=== PATIENT | female | born 1965 | race Two or more races ===

== ENCOUNTER 2024-11-17 15:48 | Emergency (ER) | payer MEDICAID ==
[~2024-11-17] VITALS: Ht 154.9 cm; Wt 85.5 kg
--- NOTE | 2024-11-17 16:21 | ED.PDOC ---
History of Present Illness HPI Comments 59-year-old female with PMHx HTN, HLD presents with a chief complaint of abdominal pain x 8 days and with nausea. Patient states that her pain is localized to her upper quadrants, nonradiating, describes as sharp, and rates her pain a 8/10. Patient reports that she is experiencing nausea, but has not vomited. Patient is hypertensive in triage at 167/87. No other symptoms or modifying factors present at this time. Time Seen by MD: 16:14 Reviewed Notes: Nurses Notes, Medications, Allergies Allergies: Coded Allergies: NO KNOWN ALLERGIES (Unverified , 11/17/24) Home Meds Active Scripts Pantoprazole Sodium Sesquihydr (Protonix) 40 Mg Tab, 40 MG PO DAILY, #30 TAB Prov:JEREL OLIVEROS MD 11/17/24 Ciprofloxacin Hcl (Cipro) 500 Mg Tab, 1 TAB PO BID, #14 TAB Prov:JEREL OLIVEORS MD 11/17/24 Information Source: Patient Mode of Arrival: Ambulatory Severity: Moderate Timing: Days Duration: Since onset Prehospital treatment: None Past Medical History PAST MEDICAL HISTORY: High Lipids, HTN Surgical History: Tubal Ligation [employer] History: Denies all [employer] Hx Family History Family History: Reviewed,noncontributory to illness Social History Smoker: Non-Smoker Alcohol: Denies ETOH Use Drugs: Denies Drug Use Lives In: Home Constitutional: denies: chills, diaphoresis, fatigue, fever, malaise, sweats, weakness, others EENTM: denies: blurred vision, double vision, ear bleeding, ear discharge, ear drainage, ear pain, ear ringing, eye pain, eye redness, hearing loss, mouth pa in, mouth swelling, nasal discharge, nose bleeding, nose congestion, nose pain, photophobia, tearing, throat pain, throat swelling, voice changes, others Respiratory: denies: cough, hemoptysis, orthopnea, SOB at rest, shortness of breath, SOB with excertion, stridor, wheezing, others Cardiovascular: denies: chest pain, dizzy spells, diaphoresis, Dyspnea on exertion, edema, irregular heart beat, left arm pain, lightheadedness, palpitations, PND, syncope, others Gastrointestinal: reports: abdominal pain, nausea; denies: abdomen distended, blood streaked bowels, constipated, diarrhea, dysphagia, difficulty swallowing, hematemesis, melena, poor appetite, poor fluid intake, rectal bleeding, rectal pain, vomiting, others Genitourinary: denies: abnormal vagina bleeding, burning, dyspareunia, dysuria, flank pain, frequency, hematuria, incontinence, pain, , vagina discharge, urgency, others Neurological: denies: dizziness, fainting, headache, left sided numbness, left sided weakness, numbness, paresthesia, pre-existing deficit, right sided numbness, right sided weakness, seizure, speech problems, tingling, tremors, weakness, others Musculoskeletal: denies: back pain, gout, joint pain, joint swelling, muscle pain, muscle stiffness, neck pain, others Integumetry: denies: bruises, change in color, change in hair/nails, dryness, laceration, lesions, lumps, rash, wounds, others Allergic/Immunocompromised: denies: Difficulty Healing, Frequent Infections, Hives, Itching, others Hematologic/Lymphatic: denies: anemia, blood clots, easy bleeding, easy bruising, swollen glands, others Endocrine: denies: excessive hunger, excessive sweating, excessive thirst, excessive urination, flushing, intolerance to cold, intolerance to heat, unexplained weight gain, unexplained weight loss, others Psychiatric: denies: anxiety, bipolar disorder, depression, hopeless, panic disorder, schizophrenia, sleepless, suicidal, others All Other Systems: Reviewed and Negative Physical Exam General Appearance: Mild Distress HEENT: Normal ENT Inspection, Pharynx Normal, TMs Normal Neck: Full Range of Motion, Non-Tender, Normal, Normal Inspection Respiratory: Chest Non-Tender, Lungs Clear, No Accessory Muscle Use, No Respiratory Distress, Normal Breath Sounds Cardiovascular: No Edema, No JVD, No Murmur, No Gallop, Normal Peripheral Pulses, Regular Rate/Rhythm Breast Exam: Deferred Gastrointestinal: No Organomegaly, Non Tender, No Pulsatile Mass, Normal Bowel Sounds, Soft Genitalia: Deferred Pelvic: Deferred Rectal: Deferred Extremities: No calf tenderness, Normal capillary refill, Normal inspection, Normal range of motion, Non-tender, No pedal edema Musculoskeletal : Apperance: Normal Neurologic: Alert, brusher and shearer II-XII nml as Tested, No Motor Deficits, Normal Affect, Normal Mood, No Sensory Deficits Cerebellar Function: Normal Reflexes: Normal Skin: Dry, Normal Color, Warm Lymphatic: No Adenopathy Was a procedure done? Was a procedure done?: No Differential Dx Considerations may include: Gastritis, cholecystitis, UTI, generalized weakness X-Ray, Labs, Meds, VS Vital Signs Date Time Temp Pulse Resp B/P (MAP) Pulse Ox O2 Delivery O2 Flow Rate FiO2 11/17/24 16:19 91 11/17/24 16:18 98.3 94 16 167/87 (113) 95 98.3 Lab Test 11/17/24 16:41 11/17/24 16:35 Range/Units White Blood Count 7.2 4.4-10.8 10^3/uL Red Blood Count 4.97 4.0-5.20 10^6/uL Hemoglobin 14.6 12.2-16.2 g/dL Hematocrit 43.3 36.0-46.0 % Mean Corpuscular Volume 87.2 80.0-100.0 fL Mean Corpuscular Hemoglobin 29.3 28.0-32.0 pg Mean Corpuscular Hemoglobin Concent 33.6 32.0-36.0 g/dL Red Cell Distribution Width 13.7 11.8-14.3 % Platelet Count 253 140-450 10^3/uL Mean Platelet Volume 8.7 6.9-10.8 fL Neutrophils (%) (Auto) 61.5 37.0-80.0 % Lymphocytes (%) (Auto) 30.1 10.0-50.0 % Monocytes (%) (Auto) 5.5 0.0-12.0 % Eosinophils (%) (Auto) 2.3 0.0-7.0 % Basophils (%) (Auto) 0.6 0.0-2.0 % Neutrophils # (Auto) 4.4 1.6-8.6 10 ^3/uL Lymphocytes # (Auto) 2.2 0.4-5.4 10 ^3/uL Monocytes # (Auto) 0.4 0-1.3 10 ^3/uL Eosinophils # (Auto) 0.2 0-0.8 10 ^3/uL Basophils # (Auto) 0 0-0.2 10 ^3/uL Nucleated Red Blood Cells 0.0 % Sodium Level 142 136-145 mmol/L Potassium Level 3.7 3.5-5.1 mmol/L Chloride Level 107 98-107 mmol/L Carbon Dioxide Level 26 20-31 mmol/L Anion Gap 9 5-15 Blood Urea Nitrogen 10 9-23 mg/dL Creatinine 0.74 0.550-1.02 mg/dL Glomerular Filtration Rate Calc 92 >90 mL/min BUN/Creatinine Ratio 13.5 10.0-20.0 Serum Glucose 93 74-106 mg/dL Calcium Level 9.5 8.7-10.4 mg/dL Total Bilirubin 0.6 0.2-1.0 mg/dL Aspartate Amino Transferase (AST) 14 13-40 U/L Alanine Aminotransferase (ALT) 16 7-40 U/L Alkaline Phosphatase 90 46-116 U/L Total Protein 7.7 5.7-8.2 g/dL Albumin 5.0 H 3.2-4.8 g/dL Lipase 42 12-53 U/L Urine Color Light-yellow Yellow Urine Clarity Turbid H Clear Urine pH 5.5 5.0-9.0 Urine Specific [place] 1.022 1.001-1.035 Urine Protein Trace H Negative Urine Ketones Negative Negative Urine Blood 1+ H Negative /uL Urine Nitrite Negative Negative Urine Bilirubin Negative Negative Urine Urobilinogen Normal Negative mg/dL Urine Leukocyte Esterase 3+ Negative /uL Urine RBC 13 0 - 4 /hpf Urine Microscopic WBC 425 H 0-5 /HPF Urine Squamous Epithelial Cells Few <5 /hpf Urine Bacteria Few H None Seen /hpf Urine Hyaline Casts Few 0 - 2 /lpf Urine Mucus Few None Seen Urine Glucose Normal Normal mg/dL Current Medications Medications (Trade) Dose Ordered Sig/Sreedhar Route Start Time Stop Time Status Last Admin Ondansetron HCl (Zofran) 4 mg ONCE ONCE IV 11/17/24 16:45 11/17/24 16:46 DC 11/17/24 17:35 Sodium Chloride 500 ml @ 500 mls/hr Q1H ONCE IVB 11/17/24 16:45 11/17/24 17:44 DC 11/17/24 16:45 Pantoprazole Sodium (Protonix) 40 mg ONCE ONCE IV 11/17/24 16:45 11/17/24 16:46 DC 11/17/24 17:35 IV Hep-Lock was established The patient was given Zofran 4 mg IV push for the nausea The patient was given Protonix 40 mg IV push The patient was given normal saline at a 500 cc bolus. The urine test is positive for a significant UTI The patient was given Rocephin 1 g IV piggyback for the UTI The patient's CBC and chemistry panel is within normal limits The CAT scan of the abdomen and pelvis shows: Impression: 4.5 x 4.1 by 3.4 cm hypoechoic hepatic lesion adjacent to the gallbladder fossa which may represent an area of focal fatty sparing/ hepatic lesion. Hepatic protocol CT should be considered for further evaluation. Mild hepatomegaly with hepatic steatosis. We gave the patient a copy of the CAT scan and said that they do need to follow up with their primary care doctor They understand and agree with the management Images Reviewed?: Images reviewed and evaluated by me Time of 1ST Reevaluation: 16:44 Reevaluation 1ST: Improved Time of 2ND Reevaluation: 18:25 Reevaluation 2ND: Improved Patient Education/Counseling: Diagnosis, Treatment, Prognosis, Need For Follow Up Family Education/Counseling: No Family Present Departure 1 Departure Time of Disposition: 18:24 Impression: Primary Impression: UTI (urinary tract infection) Qualified Codes: N30.00 - Acute cystitis without hematuria Additional Impression: Abdominal pain Qualified Codes: R10.9 - Unspecified abdominal pain Disposition: 01 HOME / SELF CARE / HOMELESS Condition: Fair e-Prescriptions Pantoprazole Sodium Sesquihydr (Protonix) 40 Mg Tab 40 MG PO DAILY, #30 TAB Prov: JEREL OLIVEROS MD 11/17/24 Ciprofloxacin Hcl (Cipro) 500 Mg Tab 1 TAB PO BID, #14 TAB Prov: JEREL OLIVEROS MD 11/17/24 Discharged With: Self Critical Care Note Critical Care Time?: No Stability Stability form required: No Heart Score Heart Score: Heart Score Response (Comments) Value History N/A 0 EKG N/A 0 Age N/A 0 Risk Factors N/A 0 Troponin N/A 0 Total 0 I personally scribed for JEREL OLIVEROS MD ([email or web address]) on 11/17/24 at 16:21. Electronically submitted by Erick Panda ([email or web address]). JEREL OLIVEROS MD Nov 17, 2024 16:21
--- NOTE | 2024-11-17 16:24 | ECG ---
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
[2024-11-17] MEDS: MORPHINE SULFATE 4 MG/ML SYR/VIAL IV ONE (16:45)
[2024-11-17] MEDS: SODIUM CHLORIDE 0.9% 500 ML IVB ONE (16:45)
[2024-11-17 16:47] LABS: Urine Bacteria FEW /hpf (None Seen); Urine Blood 1+ /uL (Negative); Urine Clarity Turbid (Clear); Urine Color Light-Yellow (Yellow); Urine Hyaline Cast FEW /lpf (0 - 2); Urine Mucus FEW (None Seen); Urine Protein, UAD TRACE (Negative); Urine Specific Gravity 1.022 (1.001-1.035); Urine Squamous Epithelial Cell FEW /hpf (<5); Urine Urobilinogen Normal (Negative); Urine WBC 425 /HPF (0-5); Urine pH 5.5 (5.0-9.0)
[2024-11-17 17:02] LABS: Basophils # (auto) 0 10 ^3/uL (0-0.2); Basophils % (auto) 0.6 % (0.0-2.0); Eosinophils # (auto) 0.2 10 ^3/uL (0-0.8); Eosinophils % (auto) 2.3 % (0.0-7.0); Hematocrit 43.3 % (36.0-46.0); Hemoglobin 14.6 g/dL (12.2-16.2); Lymphocytes # (auto) 2.2 10 ^3/uL (0.4-5.4); Lymphocytes % (auto) 30.1 % (10.0-50.0); Mean Corpuscular Hemoglobin 29.3 pg (28.0-32.0); Mean Corpuscular Hgb Conc. 33.6 g/dL (32.0-36.0); Mean Corpuscular Volume 87.2 fL (80.0-100.0); Monocytes # (auto) 0.4 10 ^3/uL (0-1.3); Monocytes % (auto) 5.5 % (0.0-12.0); Neutrophils # (auto) 4.4 10 ^3/uL (1.6-8.6); Neutrophils % (auto) 61.5 % (37.0-80.0); Platelet Count (auto) 253 10^3/uL (140-450); Red Blood Cells 4.97 10^6/uL (4.0-5.20); Red Cell Distribution Width 13.7 % (11.8-14.3); White Blood Cell 7.2 10^3/uL (4.4-10.8)
[2024-11-17 17:17] LABS: Alanine Aminotransferase 16 U/L (7-40); Alkaline Phosphatase 90 U/L (46-116); Anion Gap 9 (5-15); Aspartate Aminotransferase 14 U/L (13-40); BUN/Creatinine Ratio 13.5 (10.0-20.0); Bilirubin, Total 0.6 mg/dL (0.2-1.0); Blood Urea Nitrogen 10 mg/dL (9-23); Calcium 9.5 mg/dL (8.7-10.4); Carbon Dioxide 26 mmol/L (20-31); Chloride 107 mmol/L (98-107); Glucose 93 mg/dL (74-106); Lipase 42 U/L (12-53); Potassium 3.7 mmol/L (3.5-5.1); Sodium 142 mmol/L (136-145); Total Protein 7.7 g/dL (5.7-8.2)
[2024-11-17] MEDS: ONDANSETRON HCL 4 MG/2 ML VIAL IV ONE (17:35)
[2024-11-17] MEDS: PANTOPRAZOLE 40 MG/10 ML VIAL INJ IV ONE (17:35)
--- NOTE | 2024-11-17 17:47 | DVH ---
Procedure: US GALLBLADDER Study Date and Requested Time: 11/17/2024 04:38 PM History: pain Comparison: None Technique: Multiple high resolution galaviz-scale images obtained of the right upper quadrant of the abd omen with color Doppler for evaluation of blood flow and vascularity as indicated. Findings: Liver measures 17.2 cm in length, with slightly increased echogenicity and normal contours. No eviden ce of intrahepatic or extrahepatic ductal dilatation. 4.5 x 4.1 x 3.4 cm hypoechoic area adjacent to the gallbladder fossa Common bile duct measures 0.4 cm in diameter. Gallbladder unremarkable with no evidence of abnormal wall thickening, gallstones, biliary sludge, or pericholecystic fluid. Negative sonographic Tierney's sign. Pancreas is unremarkable Right kidney measures 10.9 cm in length, with normal contours, echotexture, and cortical thickness. N o evidence of hydronephrosis, calculi, cystic or solid renal lesions. Partially visualized inferior vena cava unremarkable. Impression: 4.5 x 4.1 by 3.4 cm hypoechoic hepatic lesion adjacent to the gallbladder fossa which may represent a n area of focal fatty sparing/ hepatic lesion. Hepatic protocol CT should be considered for further e valuation. Mild hepatomegaly with hepatic steatosis.
[2024-11-17] MEDS ORDERED: PANT40TA2 PO (18:16)
[2024-11-17] MEDS ORDERED: CIPR-173 PO (18:16)
[2024-11-17] MEDS: cefTRIAXone 1GM/50ML D5W 50 ML IV ONE (19:00)
[2024-11-17 19:08] VITALS: BP 157/93; PULSE 86; RESP 16; TEMP 98.1; O2SAT 98
== END 2024-11-17 19:12 | disposition home or self-care (01) ==
LOC: ER 15:48
DX: N39.0 Urinary tract infection, site not specified (principal); R10.10 Upper abdominal pain, unspecified; E78.5 Hyperlipidemia, unspecified; I10 Essential (primary) hypertension; Z98.51 Tubal ligation status; Z79.899 Other long term (current) drug therapy
CPT/HCPCS: 36415; 76705; 80053; 81001; 83690; 85025; 93005; 96361; 96365; 96375; 99285; J0696; J2405; J2470; J7040